=== PATIENT | female | born 1950 | race Caucasian/White ===

== ENCOUNTER 2021-03-13 15:33 | Inpatient (IN) | payer MEDICARE, OTHER ==
[~2021-03-13] VITALS: Ht 154.9 cm; Wt 90.3 kg
[~2021-03-13 15:33] MED LIST: AMLODIPINE BESY10 MG PO; GABAPENTIN300 MG PO; HYDRALAZINE HCL50 MG PO; HYDROXYZINE HCL25 MG PO; JANUVIA 50 MG T50 MG PO; MONTELUKAST SOD10 MG PO; NORCO 5-325 TA1 EACH PO; PRAVASTATIN SOD20 MG PO; PROTONIX 40 MG40 M1 PO; VITAMIN D350 MCG PO
[2021-03-13 17:00] LABS: HEMOGLOBIN 13.7 gm/dl (12.3-15.3); RED BLOOD COUNT 5.08 M/UL (4.00-5.10); WHITE BLOOD COUNT 3.4 K/UL (4.5-11.0)
[2021-03-13] MEDS ORDERED: ANASTROZOLE1 MG PO (19:42)
[2021-03-14 06:41] LABS: HEMOGLOBIN 14.5 gm/dl (12.3-15.3); RED BLOOD COUNT 5.22 M/UL (4.00-5.10)
[2021-03-14 06:46] LABS: WHITE BLOOD COUNT 2.2 K/UL (4.5-11.0)
[2021-03-15 11:34] LABS: BUN/CREATININE RATIO 27 (0-10)
[2021-03-16 07:01] LABS: HEMOGLOBIN 13.5 gm/dl (12.3-15.3); RED BLOOD COUNT 4.93 M/UL (4.00-5.10)
[2021-03-16 07:02] LABS: WHITE BLOOD COUNT 3.4 K/UL (4.5-11.0)
--- NOTE | 2021-03-16 10:10 | NUR ---
PATIENT HAS HAD INCREASING O2 REQUIREMENTS IN LAST FEW HOURS YESTERDAY PATIENT WAS ON 2L NASAL CANULA, LATER BEING INCREASED TO 5L NASAL CANULA TO 15L HIFLO TO AIRVO TO BIPAP. PROVIDER IS AWARE. ISABEL FROM [facility] CAME TO SEE PATIENT AND PUT IN THE REQUEST TO HAVE HER MOVED TO THE UNIT. RESPIRATORY IS WITH PATIENT. WAITING FOR ROOM ON UNIT TO BE CLEANED. PATIENT IS AT 89% ON AIRVO. WILL CALL REPORT AND MOVE PATIENT SOON ROOM IS AVAILABLE. PATIENT IS ASYMPTOMATIC. SITTING IN BED. WATCHING TV. WILL CONTINUE TO MONITOR.
[2021-03-17 04:50] LABS: HEMOGLOBIN 13.7 gm/dl (12.3-15.3); RED BLOOD COUNT 4.93 M/UL (4.00-5.10)
[2021-03-18 05:19] LABS: HEMOGLOBIN 13.8 gm/dl (12.3-15.3); RED BLOOD COUNT 4.96 M/UL (4.00-5.10)
--- NOTE | 2021-03-21 13:12 | NUR ---
REPORT CALLED TO RN ON PCU. PT STABLE AT THIS TIME. WILL MOVE TO PCU RM [id number] WITH O2 AND MONITORING EQUIPTMENT.
--- NOTE | 2021-03-21 14:25 | NUR ---
PT TRANSFERRED TOO PCU BED [id number]. NURSE AT BEDSIDE. PT STABLE UPON TRANSFER.
[2021-03-22 10:19] LABS: HEMOGLOBIN 12.6 gm/dl (12.3-15.3); RED BLOOD COUNT 4.55 M/UL (4.00-5.10)
[2021-03-25 03:18] LABS: WHITE BLOOD COUNT 13.7 K/UL (4.5-11.0)
[2021-03-25 03:29] LABS: HEMOGLOBIN 10.1 gm/dl (12.3-15.3); RED BLOOD COUNT 3.63 M/UL (4.00-5.10)
--- NOTE | 2021-03-25 14:00 | NUR ---
NO CHANGE FROM PREVIOUS ASSESSMENT, WILL CONTINUE TO MONITOR
[2021-03-26] MEDS ORDERED: MEDROL4 MG PO (10:12)
== END 2021-03-26 12:37 | disposition home or self-care (01) | DRG 177 ==
LOC: ER1 15:33 → PROG CARE 17:15 → CCU 17:15 → CDU 17:15 → M/S 17:15 → CCU 03-16 11:24 → PROG CARE 03-21 14:17
PROVIDERS: Internal Medicine; Internal Medicine Critical Care Medicine; Internal Medicine Pulmonary Disease; Physician Assistant; Physician Assistant Medical; ADMIT Internal Medicine
PROC: 8E0ZXY6 Isolation (ICD-10-PCS; 2021-03-13)
PROC: 3E0333Z Introduction of Anti-inflammatory into Peripheral Vein, Percutaneous Approach (ICD-10-PCS; 2021-03-13)
PROC: XW033E5 Introduction of Remdesivir Anti-infective into Peripheral Vein, Percutaneous Approach, New Technology Group 5 (ICD-10-PCS; 2021-03-13)
PROC: 5A0955A Assistance with Respiratory Ventilation, Greater than 96 Consecutive Hours, High Flow/Velocity Cannula (ICD-10-PCS; principal; 2021-03-21)
DX: U07.1 COVID-19 (principal); J12.82 Pneumonia due to coronavirus disease 2019; J15.9 Unspecified bacterial pneumonia; J80 Acute respiratory distress syndrome; I10 Essential (primary) hypertension; D69.6 Thrombocytopenia, unspecified; E66.9 Obesity, unspecified; E11.40 Type 2 diabetes mellitus with diabetic neuropathy, unspecified; Z85.3 Personal history of malignant neoplasm of breast; Z90.10 Acquired absence of unspecified breast and nipple; Z88.8 Allergy status to other drugs, medicaments and biological substances; Z68.37 Body mass index [BMI] 37.0-37.9, adult
CPT/HCPCS: 36415; 36600; 71045; 71275; 80048; 80053; 82550; 82553; 82728; 82803; 82962; 83036; 83605; 83615; 83735; 83880; 84100; 84484; 85025; 85027; 85379; 85384; 85610; 85730; 86140; 93970; 94640; 94660; 94760; 96374; 97161; 99284; J0456; J0696; J1100; J1650; J1940; J2930; J7030; U0002

== ENCOUNTER → 2021-04-22 | Outpatient (CLI) | payer MEDICARE ==
[~2021-04-22] MED LIST changes: +ANASTROZOLE1 MG PO; +MEDROL4 MG PO
== END ==
LOC: EXRD 11:43
DX: Z86.16 Personal history of COVID-19 (principal); R91.8 Other nonspecific abnormal finding of lung field
CPT/HCPCS: 71046

== ENCOUNTER → 2021-07-14 | Outpatient (CLI) | payer MEDICARE, OTHER | LOC: KOH-I 09:50 | DX: J84.10 Pulmonary fibrosis, unspecified (principal); Z86.16 Personal history of COVID-19; K76.89 Other specified diseases of liver | CPT/HCPCS: 71250 ==

== ENCOUNTER → 2021-07-28 | Outpatient (CLI) | payer MEDICARE, OTHER | LOC: HEART 5 13:31 | DX: J84.10 Pulmonary fibrosis, unspecified (principal); R09.02 Hypoxemia | CPT/HCPCS: 94060; 94729 ==